=== PATIENT | male | born 1985 | race Caucasian/White ===

== ENCOUNTER 2017-05-07 08:47 | Day surgery (SDC) | payer OTHER ==
[2017-05-07] MEDS ORDERED: LIDOCAINE 2% (SDV) 5 ML INJ (09:43)
[2017-05-07] MEDS ORDERED: PROPOFOL 40 ML (09:43)
[2017-05-07] MEDS ORDERED: MIDAZOLAM 1 MG/ML 2 ML INJ (09:44)
== END 2017-05-07 15:40 | disposition home or self-care (01) ==
LOC: GIL 08:47
DX: D12.5 Benign neoplasm of sigmoid colon (principal); B96.81 Helicobacter pylori [H. pylori] as the cause of diseases classified elsewhere; K21.9 Gastro-esophageal reflux disease without esophagitis; K29.70 Gastritis, unspecified, without bleeding; K64.8 Other hemorrhoids; I10 Essential (primary) hypertension; E66.9 Obesity, unspecified; Z68.37 Body mass index [BMI] 37.0-37.9, adult
CPT/HCPCS: 43239; 87081; 88305